=== PATIENT | male | born 1960 | race Caucasian/White ===

== ENCOUNTER 2018-01-12 11:34 | Emergency (ER) | payer BC, OTHER ==
[2018-01-12 12:22] LABS: Bilirubin Small (Negative); Blood, Urine Small (Negative); Clarity CLOUDY (Clear); Glucose, Urine (Dipstick) Negative (Negative); Leukocyte Moderate (Negative); Nitrite Negative (Negative); Protein, Urine (Dipstick) 30 mg/dL (Neg-Trace); Specific Gravity, Urine 1.019 (1.002-1.036); pH, Urine 5.5 (5.0-9.0)
[2018-01-12 12:23] LABS: Bacteria/HPF None Seen HPF (None Seen); Pathc Cast-AUWi Flag 1.16 (0-2.49); WBC/HPF 21-50 HPF (0-3)
[2018-01-12 12:43] LABS: Crystals/HPF 1+ ACID URATES HPF (Negative); Hyaline Casts/LPF 0-3 HYALINE CAST LPF (0-3 Hyaline)
[2018-01-12 12:44] LABS: #Basophils 0.1 thou/uL (0.0-0.2); #Eosinphils 0.1 thou/uL (0.0-0.7); #Monocytes 0.8 thou/uL (0.11-0.59); #Neutrophils 7.5 thou/uL (1.40-6.50); %Eosinophils 1.4 % (0.0-10.0); %Lymphocytes 19.2 % (21.0-51.0); %Monocytes 7.4 % (0.0-10.0); %Neutrophils 71.1 % (42.0-75.0); Mean Corpuscular HGB CONC 33.3 g/dL (32.0-36.0); Mean Corpuscular Hemoglobin 34.2 pg (27.0-31.0); Mean Platelet Volume 7.2 fL (7.4-10.4); Platelet Count 292 thou/uL (130-400); RBC Distribution Width 12.9 % (11.5-14.5); Red Blood Cell (RBC) Count 5.27 mill/uL (4.70-6.10); White Blood Cell (WBC) Count 10.6 thou/uL (4.8-10.8)
[2018-01-12 13:04] LABS: ALT (SGPT) 12 U/L (8-55); AST (SGOT) 14 U/L (5-34); Alkaline Phosphatase 111 U/L (40-150); Anion Gap 13 mmol/L (10-20); BUN (Urea Nitrogen) 11 mg/dL (8.4-25.7); Bilirubin, Total 0.5 mg/dL (0.2-1.2); Calc. Creatinine Clearance 0 mL/min (70-130); Calcium 9.2 mg/dL (7.8-10.44); Carbon Dioxide 23 mmol/L (22-29); Chloride 106 mmol/L (98-107); Estimated GFR-MDRD 82; Globulin 3.1 g/dL (2.4-3.5); Glucose 94 mg/dL (70-105); Lipase 55 U/L (8-78); Potassium 3.9 mmol/L (3.5-5.1); Protein, Total 7.1 g/dL (6.0-8.3); Sodium 138 mmol/L (136-145)
[2018-01-12] MEDS ORDERED: Morphine 4 MG/ML VIAL ONE (13:09)
[2018-01-12] MEDS ORDERED: Ondansetron PF 4 MG/2 ML Vial ONE (13:09)
[2018-01-12] MEDS ORDERED: Iopamidol 370 76% 100 ML VIAL ONE (14:22)
--- NOTE | 2018-01-12 14:42 | CT ---
ABDOMEN AND PELVIC CT SCAN WITH IV CONTRAST: History: 57-year-old male with history of abdominal pain. Comparison: 10-18-14 FINDINGS: The lung bases are clear. The liver is unremarkable. There is a small opacity within the gallbladder suspicious for a gallstone but without overt gallbladder wall thickening or pericholecystic abnormal fat stranding. There are multiple anterior abdominal wall fat containing hernias between the umbilicu s and the xiphoid up to 2.5 cm transversely. There is at least one borderline dilated proximal small bowel loop but not significantly changed from 2015 study. There is an aortal bilateral femoral bypass graft. Infrarenal abdominal aortic aneurysm up to 2.9 cm. Multiple bilateral renal cysts with little change from prior study. There are numerous bilateral nonobstructing renal calculi. These are much l arger and much more prominent in number in the right kidney than at the time of the prior study. Ther e is no evidence for obstructing calculus on today's exam. No CT evidence for acute appendicitis. There are acute borderline sized small bowel loops in the pelvis without wall thickening but with tevin e air and fluid. IMPRESSION: Very extensive bilateral nonobstructing renal calculi, much larger and much more prominent in number in the right kidney than the left and also increasing when compared to the prior 10-18-14 study. No stefany dence for acute obstruction. No CT evidence for acute appendicitis. Anterior abdominal wall fat co ntaining hernias. Some borderline sized small bowel loops, nonspecific, but no evidence to suggest ob struction. Aortic bifemoral bypass graft. POS: [facility]
--- NOTE | 2018-01-15 23:07 | EKG ---
Test Reason : ABD PAIN Blood Pressure : / mmHG Vent. Rate : 079 BPM Atrial Rate : 079 BPM P-R Int : 136 ms QRS Dur : 090 ms QT Int : 390 ms P-R-T Axes : 080 054 057 degrees QTc Int : 447 ms Normal sinus rhythm Possible Left atrial enlargement Possible Inferior infarct , age undetermined Abnormal ECG Confirmed by DONNIE UNDERWOOD ([id number]), photo editor NEVILLE COLE ([id number]) on 01/15/2018 11:07:20 PM Referred By: Confirmed By:DONNIE UNDERWOOD
== END 2018-01-12 14:52 | disposition home or self-care (01) ==
LOC: ERS 11:34
DX: R10.32 Left lower quadrant pain (principal); R31.9 Hematuria, unspecified; I25.10 Atherosclerotic heart disease of native coronary artery without angina pectoris; I25.2 Old myocardial infarction; F32.9 Major depressive disorder, single episode, unspecified; F17.210 Nicotine dependence, cigarettes, uncomplicated; Z79.899 Other long term (current) drug therapy; Z79.82 Long term (current) use of aspirin; Z87.442 Personal history of urinary calculi
CPT/HCPCS: 74177; 80053; 81003; 81015; 83690; 85025; 87086; 93005; 96361; 96374; 96375; J2270; J2405

== ENCOUNTER 2018-02-18 06:54 | Day surgery (SDC) | payer OTHER ==
[2018-02-17 13:40] VITALS: BMI 21.6
[2018-02-18 07:37] LABS: #Basophils 0.1 thou/uL (0.0-0.2); #Eosinphils 0.2 thou/uL (0.0-0.7); #Lymphocytes 1.6 thou/uL (1.20-3.40); #Monocytes 1.1 thou/uL (0.11-0.59); #Neutrophils 7.4 thou/uL (1.40-6.50); %Basophils 0.6 % (0.0-1.0); %Lymphocytes 15.1 % (21.0-51.0); %Neutrophils 71.3 % (42.0-75.0); Hemoglobin 18.2 g/dL (14.0-18.0); Mean Corpuscular HGB CONC 33.4 g/dL (32.0-36.0); Mean Corpuscular Hemoglobin 34.3 pg (27.0-31.0); Mean Platelet Volume 7.6 fL (7.4-10.4); Platelet Count 190 thou/uL (130-400); RBC Distribution Width 12.7 % (11.5-14.5); Red Blood Cell (RBC) Count 5.29 mill/uL (4.70-6.10); White Blood Cell (WBC) Count 10.3 thou/uL (4.8-10.8)
[2018-02-18 07:39] LABS: PTT 27.1 SEC (22.9-36.1); Prothrombin Time 12.8 SEC (12.0-14.7)
[2018-02-18] MEDS ORDERED: cefTRIAXone\\ROCEPHIN 2 GM in Sodium Chloride 0.9% 100 ML IVPB SCH (07:45)
[2018-02-18 07:53] VITALS: TEMP 97.4
[2018-02-18 07:54] LABS: Anion Gap 13 mmol/L (10-20); BUN (Urea Nitrogen) 16 mg/dL (8.4-25.7); Calc. Creatinine Clearance 79 mL/min (70-130); Calcium 9.5 mg/dL (7.8-10.44); Carbon Dioxide 25 mmol/L (22-29); Chloride 107 mmol/L (98-107); Estimated GFR-MDRD 74; Glucose 92 mg/dL (70-105); Potassium 4.3 mmol/L (3.5-5.1); Sodium 141 mmol/L (136-145)
[2018-02-18] MEDS ORDERED: Fentanyl 100 MCG/2 ML VIAL ONE (08:07)
[2018-02-18] MEDS ORDERED: Midazolam HCl 2 mg/2 ml Vial ONE (08:07)
--- NOTE | 2018-02-18 11:05 | SPC ---
RIGHT RENAL NEPHROSTOMY TUBE PLACEMENT: HISTORY: Patient right renal calculi, scheduled for nephrolithotomy. RADIATION DOSIMETRY: 2.5 minutes of fluoroscopy. DAP 23.1 mGy per cm2. TECHNIQUE: Informed consent was obtained from the patient. The right perirenal region was visualized using fluo roscopic guidance. The overlying skin was prepped and draped in the usual sterile manner. A 1% Lido michael solution was used to anesthetize the overlying soft tissues. A small dermatotomy was made. An Accu-Stick system was used to gain access into the right renal collecting system with one stick. Th e 0.018 wire was passed into the right collecting system. The tract was dilated using an Accu-Stick dilator. An 0.035 wire was passed through the Accu-Stick dilator, into the proximal right ureter. T he tract was dilated to 8 Kosovan. The Accu-Stick system was removed, and an 8 Kosovan all-purpose salvador inage catheter was placed, with the distal aspect in the proximal right ureter and the SidePorts in t he right renal pelvis and exiting through the right mid pole calices, where there is obvious intracal yceal calculus. IMPRESSION: Successful right-sided nephrostomy tube placement. POS: [facility]
[2018-02-18] MEDS ORDERED: Iopamidol 300 61% 30 ML VIAL ONE (13:35)
== END 2018-02-18 10:10 | disposition home or self-care (01) ==
LOC: SPEC 06:54
PROVIDERS: ATTEND Urology
PROC: 0T9030Z Drainage of Right Kidney with Drainage Device, Percutaneous Approach (ICD-10-PCS; principal; 2018-02-18)
DX: N20.0 Calculus of kidney (principal); I25.10 Atherosclerotic heart disease of native coronary artery without angina pectoris; I10 Essential (primary) hypertension; I73.9 Peripheral vascular disease, unspecified; I34.0 Nonrheumatic mitral (valve) insufficiency; I36.1 Nonrheumatic tricuspid (valve) insufficiency; I25.2 Old myocardial infarction; I45.10 Unspecified right bundle-branch block; E78.00 Pure hypercholesterolemia, unspecified; J44.9 Chronic obstructive pulmonary disease, unspecified; M19.90 Unspecified osteoarthritis, unspecified site; F32.9 Major depressive disorder, single episode, unspecified; F17.210 Nicotine dependence, cigarettes, uncomplicated; Z86.73 Personal history of transient ischemic attack (TIA), and cerebral infarction without residual deficits; Z88.0 Allergy status to penicillin; Z88.1 Allergy status to other antibiotic agents; Z88.8 Allergy status to other drugs, medicaments and biological substances; Z79.82 Long term (current) use of aspirin; Z79.02 Long term (current) use of antithrombotics/antiplatelets; Z79.51 Long term (current) use of inhaled steroids; Z79.2 Long term (current) use of antibiotics; Z79.899 Other long term (current) drug therapy; Z98.890 Other specified postprocedural states
CPT/HCPCS: 50430; 50432; 80048; 85025; 85610; 85730; 86850; 86900; 86901; C1729; J0696; J2250; J3010; J7050

== ENCOUNTER 2018-02-21 08:27 | Observation (INO) | payer OTHER ==
[2018-02-18 11:15] VITALS: BMI 21.9
[2018-02-21 09:49] LABS: #Basophils 0.1 thou/uL (0.0-0.2); #Eosinphils 0.3 thou/uL (0.0-0.7); #Lymphocytes 1.7 thou/uL (1.20-3.40); #Monocytes 1.3 thou/uL (0.11-0.59); #Neutrophils 8.2 thou/uL (1.40-6.50); %Basophils 0.6 % (0.0-1.0); %Eosinophils 2.2 % (0.0-10.0); %Lymphocytes 14.7 % (21.0-51.0); %Monocytes 11.4 % (0.0-10.0); Mean Corpuscular HGB CONC 32.7 g/dL (32.0-36.0); Mean Platelet Volume 7.8 fL (7.4-10.4); Platelet Count 191 thou/uL (130-400); RBC Distribution Width 12.7 % (11.5-14.5); Red Blood Cell (RBC) Count 5.31 mill/uL (4.70-6.10); White Blood Cell (WBC) Count 11.5 thou/uL (4.8-10.8)
[2018-02-21 09:55] LABS: PTT 28.9 SEC (22.9-36.1); Prothrombin Time 12.8 SEC (12.0-14.7)
[2018-02-21 10:05] LABS: Anion Gap 11 mmol/L (10-20); BUN (Urea Nitrogen) 16 mg/dL (8.4-25.7); Calc. Creatinine Clearance 84 mL/min (70-130); Calcium 9.6 mg/dL (7.8-10.44); Carbon Dioxide 24 mmol/L (22-29); Chloride 107 mmol/L (98-107); Estimated GFR-MDRD 78; Glucose 93 mg/dL (70-105); Potassium 4.5 mmol/L (3.5-5.1); Sodium 137 mmol/L (136-145)
[2018-02-21] MEDS ORDERED: Iothalamate Meglumine 60% 50 ML VIAL FS ONE (10:31)
[2018-02-21] MEDS ORDERED: Fentanyl 250 MCG/5 ML VIAL ONE (10:38)
[2018-02-21] MEDS ORDERED: cefTRIAXone\\ROCEPHIN 2 GM in Sodium Chloride 0.9% 100 ML IVPB SCH (11:15)
[2018-02-21] MEDS ORDERED: B & O ONE (13:52)
[2018-02-21 13:59] LABS: Hemoglobin 16.7 g/dL (14.0-18.0)
[2018-02-21 14:21] LABS: Anion Gap 10 mmol/L (10-20); BUN (Urea Nitrogen) 15 mg/dL (8.4-25.7); Calc. Creatinine Clearance 81 mL/min (70-130); Calcium 8.6 mg/dL (7.8-10.44); Carbon Dioxide 26 mmol/L (22-29); Chloride 109 mmol/L (98-107); Estimated GFR-MDRD 75; Glucose 94 mg/dL (70-105); Potassium 4.3 mmol/L (3.5-5.1); Sodium 141 mmol/L (136-145)
--- NOTE | 2018-02-21 17:06 | SPC ---
RIGHT NEPHROSTOMY TRACT DILATATION: Date: 02-21-18 History: Right nephrolithiasis. Nephrostomy tract dilatation and percutaneous nephrolithotomy was silas nned. Technique: After informed consent was obtained, anesthesia was performed by the anesthesiology department. Patie nt placed in the prone position. The right nephrostomy tube and surrounding area were meticulously pr epped and draped in the usual sterile fashion. Nephrostogram was performed demonstrating a pigtail ca theter within the renal pelvis and contrast opacifying the ureter. The catheter was cut and exchanged over a .035 inch Amplax guidewire for a 5 Australian Berenstein cathet er. The Berenstein catheter and guidewire were manipulated to the level of the urinary bladder. 10 and 12 Australian tissue dilators were placed followed by placement of a 9 Australian sheath within the co llecting system. A second .035 inch Amplax catheter was placed with the tip positioned above the urin fermin bladder. A 30 Australian nephrostomy tract dilatation balloon was placed over of the guidewires and nephrostomy tr act was dilated. A 26 Australian sheath was then placed. The remainder of the case was performed by Dr. Gallo. Dr. Gallo placed the nephroscope and the calc aylin within the collecting system were imaged. IMPRESSION: 1. Technically successful nephrostomy tract dilatation. A 26 Australian sheath was placed, and the calcul us on the right was able to be visualized by Dr. Gallo. 2. The remainder of the procedure will be dictated by Dr. Gallo, please see the surgical report for further detail. POS: [facility]
[2018-02-21] MEDS ORDERED: Morphine CADD 1 MG/ML CADD IVPB PRN (17:14)
[2018-02-21] MEDS ORDERED: Naloxone HCl 0.4 mg/ml Vial IV PRN (17:14)
[2018-02-21] MEDS ORDERED: Communication Order-Pharmacy FS SCH (17:15)
--- NOTE | 2018-02-21 17:33 | RAD ---
CHEST ONE VIEW: Comparison: 08-09-15 History: Post-operative exam. Status post dilatation nephrostomy. Rule out pneumothorax. FINDINGS: Normal cardiac silhouette. The pulmonary vessels and hilum are normal. Costophrenic angles are clear. Chronic changes, without consolidation or mass. No pneumothorax or osseous abnormalities. Coronary s tent is noted. IMPRESSION: No pneumothorax. POS: [facility]
[2018-02-21] MEDS ORDERED: Glycopyrrolate 0.2 MG/ML 5 ML SYRINGE ONE (21:34)
[2018-02-21] MEDS ORDERED: PHENYLEPHRINE-NS 100 MCG/ML 10 ML SYRINGE ONE (21:34)
[2018-02-21] MEDS ORDERED: Lidocaine 1% PF 5 ML VIAL ONE (21:34)
[2018-02-21] MEDS ORDERED: PROPOFOL 200 MG/20 ML VIAL ONE (21:34)
[2018-02-21] MEDS ORDERED: Ondansetron PF 4 MG/2 ML Vial ONE (21:34)
[2018-02-21] MEDS ORDERED: Dexamethasone 20 MG/5 ML VIAL ONE (21:34)
--- NOTE | 2018-02-22 01:20 | OP ---
DATE OF PROCEDURE: 02/21/2018 PREOPERATIVE DIAGNOSIS: Right renal stone. POSTOPERATIVE DIAGNOSIS: Right renal stone. PROCEDURE PERFORMED: Right percutaneous nephroscopy with ultrasonic and mechanical fragmentation of right renal pelvic stones with stone retrieval. SPECIMENS REMOVED: Stone fragments. ANESTHESIA: General. ESTIMATED BLOOD LOSS: 100 mL. DRAINS PLACED: A 16-Nigerian Smith catheter, 20-Nigerian port graham-tip catheters, and nephrostomy tube with about 2 mL in the balloon, and a guidewire that goes through this and down and coils into the urinary bladder. DESCRIPTION OF PROCEDURE: We obtained written and verbal consent from the patient. After receiving IV antibiotics, he was taken to the operating suite. He was placed in the supine position on the treatment table. PlexiPulses were placed on his lower extremities and turned on. He was given a general anesthetic and oral intubation, and orogastric tube was placed. A Smith catheter was sterilely inserted. He was then moved to a prone position with padding in axillary regions, knees, hips, and all extremities. This was checked by myself as well as Anesthesia. He was secured to the table with a Velcro strap. The left percutaneous nephrostomy tube that had been placed a few days ago in Radiology and the skin site around it were prepped and draped, and then Dr. Anderson came in, and through this tract, he was able to establish a 26-Nigerian working sheath into the renal pelvis, and two guidewires, one through the sheath and one outside of it down the ureter into the bladder as safety wires. We then came in and brought in a rigid nephroscope, and using a video camera and monitor, passed this through the sheath into the renal pelvis. There were some blood clots and stones present. We removed the blood clots and then used a mechanical lithotrite with ultrasonic component to both break up the stone and suck up these fragments. A few of the smaller fragments went down the ureter. Once we had done this to all of the stones, we could find no further stones and brought C-arm back in, and we could see no further stones. We then took a 5-Nigerian Pollack catheter and advanced it over one of our blue guidewires and down into the bladder, removing the blue guidewire and injecting contrast showing that the distal end of the Pollack was in the bladder. We then fed a 0.038 green guidewire through this, letting it coil in the bladder and then removing the open-ended catheter. We then over this passed a 20-Nigerian port graham-tip catheter and inflated the balloon with about 2 mL and then injected probably 30 to 40 mL of half and half contrast with a 60 mL irrigating syringe through this. There was no extravasation. There was probably some small fragments and filling defects in the proximal ureter, but the contrast went down without extravasation or obstruction. We then removed the sheath and secured the port graham-tip catheter to the side with a 2-0 silk stitch before cutting and removing the sheath and then hooking up the system to drainage. The patient at this time point had a dressing placed and was returned to a supine position on the treatment bed when he was awakened and extubated. The orogastric tube was removed. The Smith catheter was left indwelling. At this point, the patient was taken by a stretcher to recovery room. Job ID: [id number]
[2018-02-22] MEDS ORDERED: Nitroglycerin 0.4 MG TAB (25 Tab Bottle) SL PRN (02:26)
[2018-02-22] MEDS: D5 1/2 NS w/20 mEq KCL 1,000 ML IV SCH ×2 (02:40→12:24)
[2018-02-22 05:48] LABS: #Basophils 0.1 thou/uL (0.0-0.2); #Eosinphils 0.1 thou/uL (0.0-0.7); #Lymphocytes 1.5 thou/uL (1.20-3.40); #Monocytes 1.3 thou/uL (0.11-0.59); #Neutrophils 10.9 thou/uL (1.40-6.50); %Basophils 0.4 % (0.0-1.0); %Eosinophils 0.4 % (0.0-10.0); %Lymphocytes 10.8 % (21.0-51.0); %Monocytes 9.5 % (0.0-10.0); Hemoglobin 16.2 g/dL (14.0-18.0); Mean Corpuscular HGB CONC 33.1 g/dL (32.0-36.0); Mean Corpuscular Hemoglobin 34.5 pg (27.0-31.0); Mean Platelet Volume 8.3 fL (7.4-10.4); Platelet Count 169 thou/uL (130-400); RBC Distribution Width 12.6 % (11.5-14.5); White Blood Cell (WBC) Count 13.8 thou/uL (4.8-10.8)
[2018-02-22 05:59] LABS: Anion Gap 10 mmol/L (10-20); BUN (Urea Nitrogen) 12 mg/dL (8.4-25.7); Calc. Creatinine Clearance 92 mL/min (70-130); Calcium 8.6 mg/dL (7.8-10.44); Carbon Dioxide 26 mmol/L (22-29); Chloride 103 mmol/L (98-107); Estimated GFR-MDRD 87; Glucose 131 mg/dL (70-105); Sodium 135 mmol/L (136-145)
[2018-02-22] MEDS ORDERED: Carvedilol 6.25 MG TAB PO SCH (09:00)
[2018-02-22] MEDS ORDERED: Fluticasone Propionate Nasal Spray 16 gm Bottle NASAL SCH (09:00)
[2018-02-22] MEDS ORDERED: Multivitamin W/ Minerals 1 TAB PO SCH (09:00)
[2018-02-22] MEDS ORDERED: cefTRIAXone\\ROCEPHIN 1 GM in Sodium Chloride 0.9% 100 ML IVPB SCH (15:00)
[2018-02-22 16:15] VITALS: BP 144/81; TEMP 97.7
--- NOTE | 2018-02-22 16:46 | SPC ---
RIGHT NEPHROSTOGRAM: 02/22/18 HISTORY: Patient is post PCNL of right renal calculi. Patient has a large caliber nephrostomy tube in place wi th guidewire seen through the catheter and into the proximal right ureter. Evaluation of patency of t he ureter was requested prior to removal of the guidewire. FLUOROSCOPY: Total fluoroscopy time was 1.2 minutes with total dose of 7884 mGy*cm2. FINDINGS: Approximately 18 mL of contrast was injected via the right sided nephrostomy tube. The right renal pe lvis and inferior pole renal collecting system opacified, and contrast extended down the ureter to th e level of the urinary bladder. Patient only experienced mild discomfort with injection of contrast. No obvious filling defect is seen within the left ureter. Delayed imaging demonstrates emptying of th e right renal collecting system. Above findings were discussed with Dr. Gallo, and removal of the gu idewire was requested. As the result, the guidewire was removed, and the catheter was again placed to gravity drainage. Patient tolerated the procedure well and without immediate complication. IMPRESSION: Right sided nephrostomy tube in place. Nephrostogram demonsterates no significant hydronephrosis, and contrast extends down the right ureter to the level of the urinary bladder without a persistent fill ing defect identified. POS: [facility]
[2018-02-24] MEDS ORDERED: EVOLOCUMAB SC SCH (09:00)
[2018-02-24 16:17] LABS: CA Oxalate Dihydrate 20 % (.); CA Oxalate Monohydrate 65 % (.); CA Phosphate 15 % (.); Color Tan (.); Comment Note: (.); Stone Weight 3169.4 mg (.)
--- NOTE | 2018-02-28 05:54 | PQF ---
[facility] POST DISCHARGE CLINICAL DOCUMENTATION IMPROVEMENT CLARIFICATION FORM l Todays Date: 02/26/18 l Patients Name REAL LEZAMA l l Admit Date 02/21/18 l Disch Date 02/22/18 Curb Setter Name Romeo Zapata Email: [email or web address] Cell: [phone] To be completed by Curb Setter: Present Clinical Indicators - Signs / Symptoms Results and Location in Medical Record [ ] Documentation of: [ ] [ ] Documentation of: [ ] [ ] Documentation of: [ ] [ ] Documentation of: [ ] [ ] Risks [ ] [ ] [ ] Treatment [ ] RIGHT RENAL PELVIS CALCULUS QUERY FOR SIZE OF RENAL CALCULUS [ ] [ ] To be completed by Physician: CONG THAKUR The documentation in this patients record requires clarification to ensure coding compliance and accuracy. Check the appropriate box and include in your discharge summary. [ ] [ ] [ ] [ ] Please check this box if this does not apply to this patient [ ] Unable to determine [ ] Other diagnosis: Review the following information and exercise your independent professional judgment in responding to the clarification. Based upon the clinical findings, risk factors, and treatment, please clarify if you are treating one of the above probable or suspected diagnoses. Physician Signature: Date Time MTDD
== END 2018-02-22 18:20 | disposition home or self-care (01) ==
LOC: SDC 08:27 → EDSTATUS 09:22 → SURG A 14:50
PROVIDERS: ADMIT Urology; ATTEND Urology
PROC: 0TC03ZZ Extirpation of Matter from Right Kidney, Percutaneous Approach (ICD-10-PCS; 2018-02-21)
PROC: BT141ZZ Fluoroscopy of Kidneys, Ureters and Bladder using Low Osmolar Contrast (ICD-10-PCS; principal; 2018-02-22)
DX: N20.0 Calculus of kidney (principal); I25.10 Atherosclerotic heart disease of native coronary artery without angina pectoris; E78.5 Hyperlipidemia, unspecified; I10 Essential (primary) hypertension; I25.2 Old myocardial infarction; J44.9 Chronic obstructive pulmonary disease, unspecified; G89.29 Other chronic pain; M54.9 Dorsalgia, unspecified; F32.9 Major depressive disorder, single episode, unspecified; M19.90 Unspecified osteoarthritis, unspecified site; F17.210 Nicotine dependence, cigarettes, uncomplicated; E78.00 Pure hypercholesterolemia, unspecified; I73.9 Peripheral vascular disease, unspecified; Z86.73 Personal history of transient ischemic attack (TIA), and cerebral infarction without residual deficits; Z79.02 Long term (current) use of antithrombotics/antiplatelets; Z79.82 Long term (current) use of aspirin; Z79.51 Long term (current) use of inhaled steroids; Z79.899 Other long term (current) drug therapy; Z88.0 Allergy status to penicillin; Z88.1 Allergy status to other antibiotic agents; Z88.8 Allergy status to other drugs, medicaments and biological substances; Z91.018 Allergy to other foods; Z95.820 Peripheral vascular angioplasty status with implants and grafts; Z95.818 Presence of other cardiac implants and grafts
CPT/HCPCS: 36415; 50395; 50431; 71045; 74485; 80048; 82365; 85025; 85610; 85730; 86850; 86900; 86901; 88300; 96361; 96374; C1758; G0378; J0696; J1100; J2001; J2274; J2405; J2704; J3010; J7050; Q9961

== ENCOUNTER 2019-02-16 07:33 | Outpatient (CLI) | payer OTHER ==
--- NOTE | 2019-02-16 08:34 | CT ---
CT CHEST - LOW-DOSE SCREENING PROTOCOL: DATE: 02/16/2019. COMPARISON: None. HISTORY: Screening examination, current smoker with 35-year history of smoking, personal history of tobacco us e/nicotine dependence. TECHNIQUE: Axial CT imaging at 1.25 mm intervals through the chest without contrast with coronal and sagittal re formatted imaging. FINDINGS: The visualized upper abdomen appears grossly unremarkable. There is scattered atherosclerotic calcification of the aortic arch and the coronary arteries. The de scending thoracic aorta demonstrates suboptimally assessed noncalcified plaque anteriorly. No pleural, pericardial, or mediastinal fluid. Limited assessment of the chest for lymphadenopathy appears unremarkable. Subpleural emphysematous changes are noted in bilateral lung apices. Left upper lobe: Mild diffuse bronchial wall thickening noted. Pulmonary nodule noted on axial image 154 measuring 5 mm. Left lower lobe: Focal area of pleural-based nodular density with associated mild pleural thickening noted within the superior segment of left lower lobe measuring up to 8 mm in AP dimension. Mild diffuse left lower lobe bronchial thickening. Right upper lobe: Mild diffuse bronchial wall thickening. No discrete/dominant pulmonary parenchymal mass lesion or nodule noted. Right middle lobe: Linear density inferiorly/anteriorly suggests scar/volume loss. No discrete pulmon fermin nodule. Right lower lobe: Tiny nodule noted laterally/inferiorly on image 216 measuring 3 mm. Mild diffuse br onchial wall thickening. Review of the osseous structures demonstrates scattered thoracic spine degenerative change with no ac quechan osseous abnormality noted. IMPRESSION: 1. Lung RADS category 3-probably benign. Pleural-based nodule within the superior segment of the lef t lower lobe just under 8 mm. Recommend follow-up low-dose chest CT in 6 months. 2. Lung RADS category S-other clinically significant or potentially clinically significant findings- coronary arterial calcification. Transcribed Date/Time: 02/16/2019 8:51 AM
== END 2019-02-16 07:34 | disposition home or self-care (01) ==
LOC: CT 07:33
PROVIDERS: ATTEND Nurse Practitioner Family
DX: Z12.2 Encounter for screening for malignant neoplasm of respiratory organs (principal); F17.210 Nicotine dependence, cigarettes, uncomplicated; R91.1 Solitary pulmonary nodule; I25.10 Atherosclerotic heart disease of native coronary artery without angina pectoris
CPT/HCPCS: G0297

== ENCOUNTER 2020-02-06 10:27 | Outpatient (CLI) | payer OTHER ==
--- NOTE | 2020-02-06 11:14 | CT ---
EXAM: CT chest without IV contrast PROVIDED CLINICAL HISTORY: Personal history of tobacco use, current smoker, low dose screening COMPARISON: 02/16/2019 FINDINGS: The heart, pericardium and great vessels are suboptimally evaluated in the absence of IV contrast. Va scular calcification including coronary calcium is demonstrated. The airway appears patent and of normal caliber. There is no evidence for thoracic lymph node enlargement. No concerning pulmonary nodule is evident. Areas of subpleural scarring are redemonstrated, stable. E mphysematous changes are noted at the lung apices. No pleural fluid or pneumothorax apparent. The visualized portions of the upper abdomen demonstrate a partially visualized right renal calculus, measuring at least 7 mm. The right kidney is insufficiently visualized for comment regarding hydronephrosis. The osseous structures demonstrate no concerning lytic or blastic lesions. IMPRESSION: 1. Lung RADS category 2-benign findings. Annual screening recommended. 2. Other findings as above.
== END 2020-02-06 10:28 | disposition home or self-care (01) ==
LOC: BICCT 10:27
PROVIDERS: ATTEND Nurse Practitioner Family
DX: Z12.2 Encounter for screening for malignant neoplasm of respiratory organs (principal); N20.0 Calculus of kidney; N13.30 Unspecified hydronephrosis; N28.9 Disorder of kidney and ureter, unspecified; J98.4 Other disorders of lung; I25.10 Atherosclerotic heart disease of native coronary artery without angina pectoris; F17.210 Nicotine dependence, cigarettes, uncomplicated
CPT/HCPCS: G0297

== ENCOUNTER 2020-06-20 21:56 | Inpatient (IN) | payer OTHER ==
[2020-06-20] MEDS ORDERED: Morphine 4 MG/ML VIAL ONE (22:28)
[2020-06-20] MEDS ORDERED: Ondansetron PF 4 MG/2 ML Vial ONE (22:29)
[2020-06-20 22:38] LABS: #Eosinphils 0.1 thou/uL (0.0-0.7); #Lymphocytes 1.4 thou/uL (1.20-3.40); #Neutrophils 15.4 thou/uL (1.40-6.50); %Basophils 0.2 % (0.0-1.0); %Eosinophils 0.5 % (0.0-10.0); %Lymphocytes 7.9 % (21.0-51.0); %Monocytes 5.6 % (0.0-10.0); %Neutrophils 85.8 % (42.0-75.0); Hemoglobin 17.1 g/dL (14.0-18.0); Mean Corpuscular HGB CONC 34.1 g/dL (32.0-36.0); Mean Corpuscular Hemoglobin 34.4 pg (27.0-31.0); Mean Platelet Volume 7.3 fL (7.4-10.4); Platelet Count 261 thou/uL (130-400); RBC Distribution Width 12.6 % (11.5-14.5); Red Blood Cell (RBC) Count 4.98 mill/uL (4.70-6.10); White Blood Cell (WBC) Count 17.9 thou/uL (4.8-10.8)
[2020-06-20 22:44] LABS: Bacteria/HPF None Seen HPF (None Seen); Bilirubin Negative (Negative); Blood, Urine 3+ (Negative); Clarity Extra Turbid (Clear); Glucose, Urine (Dipstick) Normal (Negative); Ketone, Urine Trace mg/dL (Negative); Leukocyte 250 Leu/uL (Negative); Nitrite Negative (Negative); Protein, Urine (Dipstick) 50 mg/dL (Neg-Trace); RBC/HPF Greater than 50 HPF (0-3); Specific Gravity, Urine 1.016 (1.002-1.036); Squamous Epithelial None Seen HPF (0-3)
[2020-06-20 23:01] LABS: ALT (SGPT) Less than 7 U/L (8-55); AST (SGOT) 12 U/L (5-34); Albumin 3.9 g/dL (3.5-5.0); Alkaline Phosphatase 102 U/L (40-110); Anion Gap 15 mmol/L (10-20); BUN (Urea Nitrogen) 13 mg/dL (8.4-25.7); Bilirubin, Total 0.6 mg/dL (0.2-1.2); Calc. Creatinine Clearance 0 mL/min (70-130); Calcium 8.5 mg/dL (7.8-10.44); Carbon Dioxide 22 mmol/L (22-29); Chloride 107 mmol/L (98-107); Glucose 125 mg/dL (70-105); Potassium 3.8 mmol/L (3.5-5.1); Protein, Total 6.9 g/dL (6.0-8.3); Sodium 140 mmol/L (136-145)
[2020-06-20] MEDS ORDERED: Ketorolac Tromethamine 30 MG/ML VIAL ONE (23:30)
[2020-06-21] MEDS ORDERED: cefTRIAXone\\ROCEPHIN 1 GM VIAL ONE (00:43)
[2020-06-21 02:50] VITALS: BMI 21.6
[2020-06-21] MEDS ORDERED: Acetaminophen 325 MG TAB PO PRN (04:07)
[2020-06-21] MEDS ORDERED: Acetaminophen 650 MG Suppository PR PRN (04:07)
[2020-06-21] MEDS: Sodium Chloride 0.9% 1,000 ML IV SCH ×2 (04:21→22:44)
[2020-06-21 04:36] LABS: SARS-CoV-2 PCR by NAA Not Detected (NotDetected)
[2020-06-21 06:39] LABS: #Lymphocytes 1.6 thou/uL (1.20-3.40); #Neutrophils 8.5 thou/uL (1.40-6.50); %Basophils 0.3 % (0.0-1.0); %Eosinophils 0.3 % (0.0-10.0); %Lymphocytes 14.3 % (21.0-51.0); %Monocytes 8.6 % (0.0-10.0); %Neutrophils 76.5 % (42.0-75.0); Hemoglobin 15.1 g/dL (14.0-18.0); Mean Corpuscular HGB CONC 32.5 g/dL (32.0-36.0); Mean Corpuscular Hemoglobin 32.9 pg (27.0-31.0); Mean Platelet Volume 7.6 fL (7.4-10.4); Platelet Count 238 thou/uL (130-400); RBC Distribution Width 12.6 % (11.5-14.5); Red Blood Cell (RBC) Count 4.58 mill/uL (4.70-6.10); White Blood Cell (WBC) Count 11.1 thou/uL (4.8-10.8)
[2020-06-21 07:00] LABS: Anion Gap 10 mmol/L (10-20); BUN (Urea Nitrogen) 13 mg/dL (8.4-25.7); Calc. Creatinine Clearance 77 mL/min (70-130); Calcium 8.1 mg/dL (7.8-10.44); Carbon Dioxide 25 mmol/L (22-29); Chloride 108 mmol/L (98-107); Glucose 115 mg/dL (70-105); Potassium 4.6 mmol/L (3.5-5.1); Sodium 138 mmol/L (136-145)
[2020-06-21] MEDS: Carvedilol 6.25 MG TAB PO SCH ×2 (09:24→20:35)
[2020-06-21] MEDS ORDERED: Iothalamate Meglumine 60% 50 ML VIAL FS ONE (13:50)
[2020-06-21] MEDS ORDERED: Fentanyl 100 MCG/2 ML VIAL ONE ×2 (13:54→15:17)
[2020-06-21] MEDS ORDERED: Ondansetron PF 4 MG/2 ML Vial ONE (14:10)
[2020-06-21] MEDS ORDERED: PROPOFOL 200 MG/20 ML VIAL ONE (14:10)
[2020-06-21] MEDS ORDERED: Dexamethasone 20 MG/5 ML VIAL ONE (14:10)
[2020-06-21] MEDS ORDERED: Lidocaine 1% PF 5 ML VIAL ONE (14:10)
[2020-06-21] MEDS ORDERED: ePHEDrine Sulfate 50 MG/10 ML VIAL ONE (14:10)
[2020-06-21] MEDS ORDERED: Ondansetron HCl/PF 4 MG/2 ML Vial IVP PRN (15:13)
[2020-06-21] MEDS ORDERED: Promethazine HCl 25 MG/ML VIAL SLOW IVP PRN (15:13)
[2020-06-21] MEDS ORDERED: Promethazine HCl 25 MG/ML VIAL IM PRN (15:13)
[2020-06-21] MEDS: Nicotine 21 MG PATCH TD SCH (16:11)
[2020-06-21] MEDS: traMADol HCl 50 MG TAB PO PRN (18:00)
[2020-06-21] MEDS: Nitroglycerin 0.4 MG TAB (25 Tab Bottle) SL PRN ×2 (23:14→23:28)
[2020-06-22 00:02] LABS: Troponin I Less than 0.010 ng/mL (< 0.028)
[2020-06-22] MEDS: Sodium Chloride 0.9% 1,000 ML IV SCH (00:42)
[2020-06-22] MEDS ORDERED: cefTRIAXone\\ROCEPHIN 1 GM in Sodium Chloride 0.9% 100 ML IVPB SCH (01:00)
[2020-06-22 05:35] LABS: #Lymphocytes 0.9 thou/uL (1.20-3.40); #Monocytes 0.7 thou/uL (0.11-0.59); #Neutrophils 10.1 thou/uL (1.40-6.50); %Eosinophils 0.1 % (0.0-10.0); %Lymphocytes 7.6 % (21.0-51.0); %Monocytes 6.1 % (0.0-10.0); %Neutrophils 86.2 % (42.0-75.0); Hemoglobin 14.9 g/dL (14.0-18.0); Mean Corpuscular HGB CONC 33.8 g/dL (32.0-36.0); Mean Corpuscular Hemoglobin 34.3 pg (27.0-31.0); Mean Platelet Volume 7.5 fL (7.4-10.4); Platelet Count 216 thou/uL (130-400); RBC Distribution Width 12.4 % (11.5-14.5); Red Blood Cell (RBC) Count 4.33 mill/uL (4.70-6.10); White Blood Cell (WBC) Count 11.7 thou/uL (4.8-10.8)
[2020-06-22 06:00] LABS: Anion Gap 14 mmol/L (10-20); BUN (Urea Nitrogen) 13 mg/dL (8.4-25.7); Calc. Creatinine Clearance 82 mL/min (70-130); Calcium 7.9 mg/dL (7.8-10.44); Carbon Dioxide 19 mmol/L (22-29); Chloride 107 mmol/L (98-107); Glucose 113 mg/dL (70-105); Potassium 4.3 mmol/L (3.5-5.1); Sodium 136 mmol/L (136-145)
[2020-06-22] MEDS: traMADol HCl 50 MG TAB PO PRN ×2 (08:16→15:07)
[2020-06-22] MEDS: Carvedilol 6.25 MG TAB PO SCH (08:16)
[2020-06-22] MEDS: Nicotine 21 MG PATCH TD SCH (11:28)
[2020-06-22] MEDS ORDERED: Sodium Chloride 0.9% 1,000 ML IV SCH (11:44)
[2020-06-22] MEDS ORDERED: Cefdinir 300 MG CAP PO SCH ×2 (14:08→14:15)
[2020-06-22 16:28] VITALS: BP 173/92; TEMP 97.8
[2020-06-22] MEDS ORDERED: Docusate 100 MG CAP PO SCH (21:00)
[2020-06-22] MEDS ORDERED: Tamsulosin HCl 0.4 MG CAP PO SCH (21:00)
[2020-06-28 16:15] LABS: Color Black (.); Stone Weight 2 mg (.)
== END 2020-06-22 16:58 | disposition home or self-care (01) | DRG 660 ==
LOC: ERS 21:56 → T4-B 06-21 01:19
PROVIDERS: ADMIT Internal Medicine; ATTEND Internal Medicine
PROC: 0T778DZ Dilation of Left Ureter with Intraluminal Device, Via Natural or Artificial Opening Endoscopic (ICD-10-PCS; principal; 2020-06-21)
PROC: 0TC78ZZ Extirpation of Matter from Left Ureter, Via Natural or Artificial Opening Endoscopic (ICD-10-PCS; 2020-06-21)
PROC: BT1F1ZZ Fluoroscopy of Left Kidney, Ureter and Bladder using Low Osmolar Contrast (ICD-10-PCS; 2020-06-21)
DX: N13.6 Pyonephrosis (principal); E44.0 Moderate protein-calorie malnutrition; Z87.442 Personal history of urinary calculi; Z88.1 Allergy status to other antibiotic agents; Z88.0 Allergy status to penicillin; Z91.018 Allergy to other foods; Z79.82 Long term (current) use of aspirin; Z79.02 Long term (current) use of antithrombotics/antiplatelets; I25.10 Atherosclerotic heart disease of native coronary artery without angina pectoris; I25.2 Old myocardial infarction; G89.29 Other chronic pain; N18.30 Chronic kidney disease, stage 3 unspecified; E78.5 Hyperlipidemia, unspecified; I73.9 Peripheral vascular disease, unspecified; I12.9 Hypertensive chronic kidney disease with stage 1 through stage 4 chronic kidney disease, or unspecified chronic kidney disease; F32.9 Major depressive disorder, single episode, unspecified; J44.9 Chronic obstructive pulmonary disease, unspecified; Z86.73 Personal history of transient ischemic attack (TIA), and cerebral infarction without residual deficits; Z95.5 Presence of coronary angioplasty implant and graft; Z87.891 Personal history of nicotine dependence; Z82.49 Family history of ischemic heart disease and other diseases of the circulatory system; R31.0 Gross hematuria; K80.20 Calculus of gallbladder without cholecystitis without obstruction; Z68.21 Body mass index [BMI] 21.0-21.9, adult
CPT/HCPCS: 36415; 74176; 74420; 80048; 80053; 81003; 81015; 82365; 84484; 85025; 87086; 87635; 88300; 93005; 93010; 96374; 96375; J0696; J1100; J1885; J2270; J2405; J2704; J3010; J3490; Q9961; U0003; U0005

== ENCOUNTER 2021-07-16 12:10 | Outpatient (CLI) | payer BC ==
[2021-07-16 13:48] LABS: Anion Gap 14 mmol/L (10-20); BUN (Urea Nitrogen) 14 mg/dL (8.4-25.7); Calc. Creatinine Clearance 0 mL/min (70-130); Calcium 9.3 mg/dL (7.8-10.44); Carbon Dioxide 25 mmol/L (22-29); Chloride 105 mmol/L (98-107); Glucose 105 mg/dL (70-105); Potassium 4.6 mmol/L (3.5-5.1); Sodium 139 mmol/L (136-145)
[2021-07-16 13:54] LABS: INR-International Normal Ratio 0.9; PTT 27.6 sec (22.0-33.0); Prothrombin Time 10.3 sec (9.5-12.1)
[2021-07-16 14:00] LABS: Hemoglobin 16.6 g/dL (13.5-17.5); Mean Corpuscular HGB CONC 33.5 g/dL (32.0-36.0); Mean Corpuscular Hemoglobin 32.3 pg (27.0-33.0); Mean Corpuscular Volume 96.5 fl (81.2-95.1); Platelet Count 267 10x3/uL (150-450); RBC Distribution Width 12.9 % (11.5-14.5); Red Blood Cell (RBC) Count 5.14 10x6/uL (4.32-5.72); White Blood Cell (WBC) Count 7.1 10x3/uL (3.5-10.5)
[2021-07-16 21:17] LABS: SARS-CoV-2 PCR by NAA Not Detected (NotDetected)
== END 2021-07-16 12:11 | disposition home or self-care (01) ==
LOC: LABBT 12:10
PROVIDERS: ATTEND Urology
DX: Z01.812 Encounter for preprocedural laboratory examination (principal); N20.2 Calculus of kidney with calculus of ureter; Z20.822 Contact with and (suspected) exposure to COVID-19
CPT/HCPCS: 80048; 85027; 85610; 85730; 87086; U0003; U0005

== ENCOUNTER 2021-07-21 06:57 | Day surgery (SDC) | payer BC ==
[2021-07-17 10:28] VITALS: BMI 27.1
[2021-07-21] MEDS ORDERED: Iopamidol 30 ML ONE (09:40)
[2021-07-21] MEDS ORDERED: Fentanyl 250 MCG/5 ML VIAL ONE (10:12)
[2021-07-21] MEDS ORDERED: cefTRIAXone\\ROCEPHIN 2 GM VIAL ONE (10:19)
[2021-07-21] MEDS ORDERED: Sodium Chloride 0.9% 100 ML ONE (10:24)
[2021-07-21] MEDS ORDERED: PROPOFOL 200 MG/20 ML VIAL ONE (10:29)
[2021-07-21] MEDS ORDERED: Lidocaine 1% PF 5 ML VIAL ONE (10:29)
[2021-07-21] MEDS ORDERED: Ondansetron PF 4 MG/2 ML Vial ONE (10:29)
[2021-07-21] MEDS ORDERED: Fentanyl 100 MCG/2 ML VIAL ONE (11:38)
== END 2021-07-21 13:20 | disposition home or self-care (01) ==
LOC: SDC 06:57
PROVIDERS: ATTEND Urology
PROC: BT1FZZZ Fluoroscopy of Left Kidney, Ureter and Bladder (ICD-10-PCS; principal; 2021-07-21)
DX: N20.0 Calculus of kidney (principal); N40.0 Benign prostatic hyperplasia without lower urinary tract symptoms; I25.10 Atherosclerotic heart disease of native coronary artery without angina pectoris; I25.2 Old myocardial infarction; I73.9 Peripheral vascular disease, unspecified; J44.9 Chronic obstructive pulmonary disease, unspecified; Z79.02 Long term (current) use of antithrombotics/antiplatelets; Z79.82 Long term (current) use of aspirin; Z79.899 Other long term (current) drug therapy; Z88.0 Allergy status to penicillin; Z88.1 Allergy status to other antibiotic agents; Z88.8 Allergy status to other drugs, medicaments and biological substances; Z91.018 Allergy to other foods; Z95.5 Presence of coronary angioplasty implant and graft; Z95.820 Peripheral vascular angioplasty status with implants and grafts
CPT/HCPCS: 74420; 93005; 93010; J0696; J2405; J2704; J3010; J3490; Q9967

== ENCOUNTER 2022-02-02 10:49 | Outpatient (CLI) | payer BC | END 2022-02-02 10:50 | disposition home or self-care (01) | LOC: BICCT 10:49 | PROVIDERS: ATTEND Nurse Practitioner Family | DX: Z12.2 Encounter for screening for malignant neoplasm of respiratory organs (principal); Z87.891 Personal history of nicotine dependence; R91.8 Other nonspecific abnormal finding of lung field | CPT/HCPCS: 71271 ==

== ENCOUNTER 2022-02-13 14:42 | Outpatient (CLI) | payer BC | END 2022-02-13 14:43 | disposition home or self-care (01) | LOC: BICMAMMO 14:42 | PROVIDERS: ATTEND Nurse Practitioner Family | DX: M81.0 Age-related osteoporosis without current pathological fracture (principal) | CPT/HCPCS: 77080 ==

== ENCOUNTER 2023-02-19 13:37 | Outpatient (CLI) | payer BC | END 2023-02-19 13:38 | disposition home or self-care (01) | LOC: BICCT 13:37 | PROVIDERS: ATTEND Internal Medicine | DX: Z12.2 Encounter for screening for malignant neoplasm of respiratory organs (principal); I71.23 Aneurysm of the descending thoracic aorta, without rupture | CPT/HCPCS: 71271 ==

== ENCOUNTER 2023-05-27 02:32 | Emergency (ER) | payer BC ==
[2023-05-27 03:18] LABS: #Basophils 0.1 thou/uL (0.0-0.2); #Eosinphils 0.2 thou/uL (0.0-0.7); #Monocytes 0.7 thou/uL (0.11-0.59); #Neutrophils 8.6 thou/uL (1.40-6.50); %Basophils 0.7 % (0.0-1.0); %Eosinophils 1.9 % (0.0-10.0); %Lymphocytes 9.6 % (21.0-51.0); %Monocytes 6.7 % (0.0-10.0); %Neutrophils 80.4 % (42.0-75.0); Hematocrit 44.3 % (42.0-52.0); Hemoglobin 15.1 g/dL (14.0-18.0); Mean Corpuscular HGB CONC 34.1 g/dL (32.0-36.0); Mean Corpuscular Hemoglobin 33.2 pg (27.0-31.0); Mean Corpuscular Volume 97.4 fl (78.0-98.0); Platelet Count 202 10x3/uL (130-400); RBC Distribution Width 13.1 % (11.5-14.5); Red Blood Cell (RBC) Count 4.55 mill/uL (4.70-6.10); White Blood Cell (WBC) Count 10.7 10x3/uL (4.8-10.8)
[2023-05-27] MEDS ORDERED: Ondansetron PF 4 MG/2 ML Vial ONE (03:20)
[2023-05-27 03:31] LABS: Critical Call Chem-Lactate NUR.MVB@0330
[2023-05-27 03:33] LABS: INR-International Normal Ratio 1.1; PTT 25.7 sec (22.9-36.1)
[2023-05-27 03:47] LABS: ALT (SGPT) 14 U/L (8-55); AST (SGOT) 14 U/L (5-34); Albumin 4.1 g/dL (3.4-4.8); Alkaline Phosphatase 80 U/L (40-110); Anion Gap 19 mmol/L (10-20); BUN (Urea Nitrogen) 17 mg/dL (8.4-25.7); CK (CPK) 59 U/L (30-200); Calc. Creatinine Clearance 0 mL/min (70-130); Calcium 9.5 mg/dL (7.8-10.44); Carbon Dioxide 19 mmol/L (23-31); Chloride 106 mmol/L (98-107); Estimated GFR 46; Globulin 3.6 g/dL (2.4-3.5); Glucose 182 mg/dL (80-115); Lipase 20 U/L (8-78); Magnesium 2.4 mg/dL (1.6-2.6); Potassium 4.3 mmol/L (3.5-5.1); Protein, Total 7.7 g/dL (5.8-8.1); Sodium 140 mmol/L (136-145)
[2023-05-27] MEDS ORDERED: Acetaminophen 500 MG TAB ONE (04:43)
[2023-05-27 05:57] LABS: Acetaminophen 16 mcg/mL (10.0-30.0); Alcohol Less than 10.0 mg/dL (Less than 10); Salicylate Less than 8.0 mg/dL (15.0-30.0)
[2023-05-27 06:43] LABS: Bacteria/HPF None Seen HPF (None Seen); Bilirubin Negative (Negative); Blood, Urine Negative (Negative); CAUTI Indications for Culture Alt mental st,lethar; Clarity Clear (Clear); Glucose, Urine (Dipstick) Normal (Negative); Ketone, Urine Negative (Negative); Leukocyte 25 Leu/uL (Negative); Nitrite Negative (Negative); Protein, Urine (Dipstick) 10 mg/dL (Neg-Trace); RBC/HPF 0-3 HPF (0-3); Specific Gravity, Urine 1.013 (1.002-1.036); Squamous Epithelial 0-3 HPF (0-3); Urobilinogen Normal mg/dL (Less than 2)
[2023-05-27 06:44] LABS: Urine Culture Reflex Yes Yes
[2023-05-27 06:49] LABS: Amphetamine Not Detected (NotDetected); Barbiturates Screen Not Detected (NotDetected); Benzodiazepine Screen Not Detected (NotDetected); Cocaine Metabolite Screen Not Detected (NotDetected); Methadone Not Detected (NotDetected); Methamphetamine Not Detected (NotDetected); Opiate Screen Not Detected (NotDetected); Oxycodone Screen Not Detected (NotDetected); Phencyclidine (PCP) Not Detected (NotDetected); THC/Cannabinoid Screen Detected (NotDetected); Tricyclic Screen Not Detected (NotDetected)
== END 2023-05-27 09:14 | disposition short-term general hospital (02) ==
LOC: ERS 02:32
DX: R56.9 Unspecified convulsions (principal); E87.20 Acidosis, unspecified; I10 Essential (primary) hypertension; J44.9 Chronic obstructive pulmonary disease, unspecified; Z79.899 Other long term (current) drug therapy; Z87.891 Personal history of nicotine dependence
CPT/HCPCS: 36415; 70450; 71045; 80053; 80306; 80307; 81001; 82550; 83605; 83690; 83735; 83880; 84146; 84484; 85025; 85610; 85730; 87086; 93005; 96361; 96374; J2405

== ENCOUNTER 2024-02-21 10:26 | Outpatient (CLI) | payer BC | END 2024-02-21 10:27 | disposition home or self-care (01) | LOC: BICCT 10:26 | PROVIDERS: ATTEND Internal Medicine | DX: Z12.2 Encounter for screening for malignant neoplasm of respiratory organs (principal); Z87.891 Personal history of nicotine dependence; I71.23 Aneurysm of the descending thoracic aorta, without rupture | CPT/HCPCS: 71271 ==

== ENCOUNTER 2024-03-09 10:16 | Emergency (ER) | payer BC ==
[2024-03-09 11:02] LABS: Bacteria/HPF None Seen HPF (None Seen); Bilirubin Negative (Negative); Blood, Urine 3+ (Negative); CAUTI Indications for Culture Acute Hematuria; Clarity Turbid (Clear); Glucose, Urine (Dipstick) Normal (Negative); Ketone, Urine 10 mg/dL (Negative); Leukocyte 75 Leu/uL (Negative); Nitrite Negative (Negative); Protein, Urine (Dipstick) 30 mg/dL (Neg-Trace); RBC/HPF Greater than 50 HPF (0-3); Specific Gravity, Urine 1.016 (1.002-1.036); Squamous Epithelial 0-3 HPF (0-3); Urobilinogen Normal mg/dL (Less than 2); WBC/HPF Greater than 50 HPF (0-3)
[2024-03-09 11:03] LABS: Urine Culture Reflex Yes Yes
[2024-03-09 11:55] LABS: #Basophils 0.06 10x3/uL (0.0-0.2); %Basophils 0.6 % (0.0-1.0); %Eosinophils 1.5 % (0.0-10.0); %Lymphocytes 16.2 % (21.0-51.0); %Monocytes 11.2 % (0.0-10.0); %Neutrophils 70.2 % (42.0-75.0); Hematocrit 49.6 % (42.0-52.0); Hemoglobin 16.8 g/dL (14.0-18.0); Mean Corpuscular HGB CONC 33.9 g/dL (32.0-36.0); Mean Corpuscular Hemoglobin 33.9 pg (27.0-31.0); Mean Platelet Volume 10.1 fL (7.4-10.4); Platelet Count 214 10x3/uL (130-400); RBC Distribution Width 14.6 % (11.5-14.5); Red Blood Cell (RBC) Count 4.96 mill/uL (4.70-6.10)
[2024-03-09 12:22] LABS: Anion Gap 14 mmol/L (10-20); BUN (Urea Nitrogen) 15 mg/dL (8.4-25.7); Calc. Creatinine Clearance 0 mL/min (70-130); Calcium 9.3 mg/dL (7.8-10.44); Carbon Dioxide 23 mmol/L (23-31); Chloride 107 mmol/L (98-107); Estimated GFR 55; Glucose 95 mg/dL (80-115); Lipase 22 U/L (8-78); Potassium 4.4 mmol/L (3.5-5.1); Sodium 140 mmol/L (136-145)
[2024-03-09] MEDS ORDERED: Ketorolac Tromethamine 30 MG (1 mL) VIAL ONE (13:00)
[2024-03-09] MEDS ORDERED: Ondansetron ODT 4 MG TAB ONE (13:01)
== END 2024-03-09 13:08 | disposition home or self-care (01) ==
LOC: ERS 10:16
DX: N39.0 Urinary tract infection, site not specified (principal); N20.0 Calculus of kidney; I10 Essential (primary) hypertension; Z87.891 Personal history of nicotine dependence
CPT/HCPCS: 36415; 74176; 80048; 81001; 83690; 85025; 87086; 96372; J1885; Q0162

== ENCOUNTER 2025-03-01 07:38 | Outpatient (CLI) | payer BC | END 2025-03-01 07:39 | disposition home or self-care (01) | LOC: CT 07:38 | PROVIDERS: ATTEND Internal Medicine | DX: Z12.2 Encounter for screening for malignant neoplasm of respiratory organs (principal); Z72.0 Tobacco use; R91.1 Solitary pulmonary nodule; I25.10 Atherosclerotic heart disease of native coronary artery without angina pectoris; I71.23 Aneurysm of the descending thoracic aorta, without rupture | CPT/HCPCS: 71271 ==